=== PATIENT | male | born 1975 | race Caucasian/White ===

== ENCOUNTER 2018-12-08 19:53 | Emergency (ER) | payer SELFPAY ==
[~2018-12-08] VITALS: Wt 79.6 kg
[2018-12-08 20:27] VITALS: BP 141/79; PULSE 97; RESP 18
== END 2018-12-08 22:00 | disposition left against medical advice (07) ==
LOC: E/R 19:53
DX: Z53.21 Procedure and treatment not carried out due to patient leaving prior to being seen by health care provider (principal)
CPT/HCPCS: 93005